=== PATIENT | male | born 1990 | race African-American/Black ===

== ENCOUNTER → 2021-03-29 | Outpatient (CLI) | payer BC ==
--- NOTE | 2021-03-29 13:40 | RAD ---
EXAM: XR LUMBAR SPINE 2-3V 03/29/2021 1:25 PM CLINICAL INDICATION: Back and flank pain, no known injury COMPARISON: None TECHNIQUE: 3 views of the lumbar spine FINDINGS: There is transitional anatomy at the lumbosacral junction. Lumbar spine is normal in alignm ent. There is no acute fracture. Disc spaces are maintained. No facet arthrosis. Probable 3 mm right renal calculus. IMPRESSION: 1. No acute osseous abnormality or degenerative disc disease. 2. Probable right nephrolithiasis. Electronically signed by: Bernie Cardoso MD (03/29/2021 1:37 PM) [id number]
== END ==
LOC: RAD 13:02
PROVIDERS: ATTEND Family Medicine
DX: R10.9 Unspecified abdominal pain (principal)
CPT/HCPCS: 72100